=== PATIENT | male | born 1995 | race Caucasian/White ===

== ENCOUNTER 2018-02-05 01:26 | Inpatient (IN) ==
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
[2018-02-05 03:12] LABS: Baso % (Auto) 0.3 % (0.0-2.0); Eos % (Auto) 0.3 % (0.0-4.0); Hematocrit 40.8 % (39.0-51.0); Hemoglobin 13.9 gm/dL (13.0-17.0); Lymph # (Auto) 1.4 th/mm3 (1.0-4.8); Lymph % (Auto) 9.3 % (9.0-44.0); Mean Corpuscular Hemoglobin 29.8 pg (27.0-34.0); Mean Corpuscular Volume 87.6 fL (80.0-100.0); Mean Platelet Volume 7.7 fL (7.0-11.0); Mono # (Auto) 1.1 th/mm3 (0.0-0.9); Mono % (Auto) 7.1 % (0.0-8.0); Neut # (Auto) 12.5 th/mm3 (1.8-7.7); Platelet Count 303 th/mm3 (150-450); Red Blood Count 4.66 mil/mm3 (4.50-5.90); Red Cell Distribution Width 13.2 % (11.6-17.2)
[2018-02-05 03:22] LABS: Activated Partial Thrombo Time 26.8 sec (24.3-30.1); INR 1.1 Ratio; Prothrombin Time 10.8 sec (9.8-11.6)
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
[2018-02-05] MEDS ORDERED: Acetaminophen 325 MG Tablet PO PRN (04:25)
[2018-02-05] MEDS ORDERED: Morphine Sulfate Inj 2 MG/ML Vial IV.PUSH PRN (07:04)
[2018-02-05] MEDS ORDERED: Sod Chloride 0.9% Inj 1,000 ML IV.CONT SCH (07:15)
[2018-02-05] MEDS ORDERED: Morphine Inj 4 MG/ML Vial IV.PUSH PRN (07:45)
[2018-02-05] MEDS ORDERED: Pantoprazole Inj 40 MG Vial IV.PUSH SCH (08:00)
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
[2018-02-05] MEDS ORDERED: Docusate Sodium 100 MG Capsule PO SCH (09:00)
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
[2018-02-06] MEDS ORDERED: Chlorhexidine Gluconate 2% 1 Pack (2 Cloths) TOPICAL PRN (04:00)
[2018-02-06] MEDS ORDERED: Chlorhexidine Gluconate 2% 1 Pack (2 Cloths) TOPICAL SCH (04:00)
== END 2018-02-05 12:46 | disposition home or self-care (01) ==
LOC: NEPE 01:26 → NEPHCDU 01:26 → NEDA 01:26 → OBSVTOIN 04:22 → INTOOBSV 04:22 → NEDH 07:37 → NEPHCDU 11:16
PROVIDERS: ADMIT Surgery; ATTEND Surgery